=== PATIENT | female | born 1990 | race Caucasian/White ===

== ENCOUNTER 2019-11-07 14:10 | Inpatient (IN) | payer OTHER ==
[~2019-11-07] VITALS: Ht 157.5 cm; Wt 68.5 kg
[2019-11-07 16:00] VITALS: BP 111/71
--- NOTE | 2019-11-07 16:15 | NUR ---
29 year old FEMALE admitted to room # 502-2 for stabilization. Reports an addiction to [facility] last used YESTERDAY prior to admission. Compliant with admission procedure. Patient COMPLAINING OF MUSCLE ACHES AT THIS TIME. See assessment forms for additional information about patient status.
--- NOTE | 2019-11-07 16:15 | NUR ---
PATIENT MEETS [facility]. CINA=15. PATIENT WNATS TO FOLLOW UP WITH [facility] FOR HER AFTERCARE PLAN. CLAUDIO OLIVO B.A. HEALTH EDUCATION COORDINATOR
[2019-11-07 17:08] LABS: BILIRUBIN NEGATIVE (NEGATIVE); BLOOD NEGATIVE (NEGATIVE); CLARITY CLEAR (CLEAR); COLOR YELLOW (YELLOW); GLUCOSE NEGATIVE (NEGATIVE); KETONE NEGATIVE (NEGATIVE); LEUKO ESTERASE NEGATIVE (NEGATIVE); NITRITE NEGATIVE (NEGATIVE); SPECIFIC GRAVITY 1.025 (1.005-1.030); UROBILINOGEN 0.2 E.U./dl (0.2-1.0)
[2019-11-07 17:15] LABS: URINE AMPHETAMINES < 1000 (1000ng/ml); URINE BARBITURATES < 200 (200ng/ml); URINE BENZODIAZEPINES < 200 (200ng/ml); URINE CANNABINOIDS (THC) < 50 (50ng/ml); URINE COCAINE > 300 (300ng/ml); URINE METHADONE < 300 (300ng/ml); URINE OPIATES < 300 (300ng/ml)
[2019-11-07 17:24] LABS: URINE PHENCYCLIDINE < 25 (25ng/ml)
[2019-11-07 17:28] LABS: BACTERIA TRACE; EPITHELIAL CELLS 0-2; MUCOUS 2+; WBC 0-2 wbc/hpf (0-5)
--- NOTE | 2019-11-07 18:25 | NUR ---
PT TOLERATED ROUTINE SUBUTEX FOR WITHDRAWAL SYMPTOMS. C/O ACHES ALL OVER. CALL LIGHT IN REACH.
[2019-11-07 18:35] LABS: BASO # 0.1 10*3/uL (0.0-0.1); EOS # 0.4 10*3/uL (0.0-0.4); EOS % 5.2 % (1.0-4.0); HEMATOCRIT 44.4 % (37.0-47.0); HEMOGLOBIN 14.6 g/dl (12.0-16.0); LYMPH # 1.9 10*3/uL (1.3-4.4); LYMPH % 24.7 % (27.0-41.0); MEAN CELL VOLUME 87.2 fl (81.0-99.0); MEAN CORPUSCULAR HGB 28.7 pg (27.0-31.0); MEAN CORPUSCULAR HGB CONC 32.9 g/dl (33.0-37.0); MEAN PLATELET VOLUME 9.4 fl (9.6-12.3); MONO # 0.6 10*3/uL (0.1-1.0); MONO % 7.1 % (3.0-9.0); NEUT # 4.8 10*3/uL (2.3-7.9); NEUT % 61.6 % (47.0-73.0); PLATELET COUNT AUTOMATED 317 10*3/uL (130-400); RED BLOOD COUNT 5.09 10*6/uL (4.10-5.10); RED CELL DISTRI WIDTH 14.7 % (0-14.5); WHITE BLOOD COUNT 7.9 10*3/uL (4.8-10.8)
[2019-11-07 18:52] LABS: ALBUMIN 3.7 gm/dl (3.1-4.5); ALKALINE PHOSPHATASE 79 U/L (45-117); BUN 15 mg/dl (7-24); CHLORIDE 109 mmol/L (98-107); CREATININE 0.99 mg/dL (0.55-1.02); POTASSIUM 4.2 mmol/L (3.5-5.1); SGOT/AST 7 IU/L (3-35); SGPT/ALT 18 U/L (12-78); SODIUM 140 mmol/L (136-145); TOTAL PROTEIN 7.8 gm/dL (6.4-8.2)
[2019-11-07 18:58] LABS: ETHYL ALCOHOL < 3.0 mg/dl (<3)
[2019-11-07 20:00] VITALS: BP 113/73
--- NOTE | 2019-11-07 22:00 | NUR ---
PT RESTING IN BED. DENIES ANY PROBLEMS. CALL LIGHT IN REACH.
[2019-11-08] VITALS: BP 112/74
[2019-11-08 08:00] VITALS: BP 98/52
[2019-11-08 12:00] VITALS: BP 101/86; BP 116/70
--- NOTE | 2019-11-08 14:29 | NUR ---
PATIENT STILL WANTS TO FOOLOW UP WITH [facility] FOR HER AFTERCARE PLAN. CLAUDIO OLIVO B.A. PURLER
--- NOTE | 2019-11-08 15:58 | NUR ---
ROUTINE SUBUTEX GIVEN AT THIS TIME. PT DENIES ANY PRN MEDS. WILL MONITOR. CALL LIGHT WITHIN REACH.
[2019-11-08 16:00] VITALS: BP 102/64
[2019-11-08 20:00] VITALS: BP 110/65
--- NOTE | 2019-11-08 20:00 | NUR ---
IN TO ASSESS PATIENT, PATINET PLEASANT AND COOPERATIVE. DENIES ANY COMPLAINTS RIGHT NOW. CALL LIGHT WITHIN REACH, WILL MONITOR
--- NOTE | 2019-11-08 21:59 | NUR ---
PRN REQUIP GIVEN FOR PT COMPLAINTS OF RESTLESS LEGS. CALL LIGHT WITHIN REACH, WILL MONITOR
--- NOTE | 2019-11-08 23:06 | NUR ---
PATIENT STATES REQUIP EFFECTIVE, SHE FEELS BETTER AND HAS NO OTHER NEEDS
[2019-11-09] VITALS: BP 112/67; BP 113/70
--- NOTE | 2019-11-09 00:03 | NUR ---
24 HR chart check completed.
[2019-11-09 08:00] VITALS: BP 100/52
[2019-11-09 12:00] VITALS: BP 102/54
--- NOTE | 2019-11-09 15:26 | NUR ---
PATIENT IS SCHEDULED TO GO TO [facility] FOR HER AFTERCARE PLAN. PATIENT AGREES AND UNDERSTANDS HER AFTERCARE PLAN. CLAUDIO OLIVO B.A. SALES PROMOTER
[2019-11-09 16:00] VITALS: BP 107/58
[2019-11-09 20:00] VITALS: BP 119/62
--- NOTE | 2019-11-09 23:09 | NUR ---
24 HR chart check completed.
[2019-11-10] VITALS: BP 112/67
[2019-11-10 06:50] LABS: BASO # 0.1 10*3/uL (0.0-0.1); BASO % 1.3 % (0.0-1.0); EOS # 0.6 10*3/uL (0.0-0.4); EOS % 7.8 % (1.0-4.0); HEMATOCRIT 40.8 % (37.0-47.0); LYMPH # 3.3 10*3/uL (1.3-4.4); LYMPH % 40.4 % (27.0-41.0); MEAN CELL VOLUME 85.9 fl (81.0-99.0); MEAN CORPUSCULAR HGB 27.4 pg (27.0-31.0); MEAN CORPUSCULAR HGB CONC 31.9 g/dl (33.0-37.0); MEAN PLATELET VOLUME 9.4 fl (9.6-12.3); MONO # 0.8 10*3/uL (0.1-1.0); MONO % 9.9 % (3.0-9.0); NEUT # 3.3 10*3/uL (2.3-7.9); NEUT % 40.5 % (47.0-73.0); PLATELET COUNT AUTOMATED 281 10*3/uL (130-400); RED BLOOD COUNT 4.75 10*6/uL (4.10-5.10); RED CELL DISTRI WIDTH 13.9 % (0-14.5); WHITE BLOOD COUNT 8.2 10*3/uL (4.8-10.8)
[2019-11-10 07:20] LABS: CREATININE 0.84 mg/dL (0.55-1.02)
[2019-11-10 08:00] VITALS: BP 121/72
--- NOTE | 2019-11-10 10:34 | NUR ---
Discharge instructions reviewed with patient/family. Patient receptive and verbalizes understanding. Follow-up care arranged. Written instructions given to patient/family. DONTA WILLS
== END 2019-11-10 10:34 | disposition home or self-care (01) | DRG 773 ==
LOC: 5E 14:10
PROVIDERS: Student in an Organized Health Care Education/Training Program; ADMIT Family Medicine
DX: F11.23 Opioid dependence with withdrawal (principal); F41.9 Anxiety disorder, unspecified; F17.210 Nicotine dependence, cigarettes, uncomplicated; G25.81 Restless legs syndrome; F19.90 Other psychoactive substance use, unspecified, uncomplicated; F14.10 Cocaine abuse, uncomplicated; E66.3 Overweight; R82.71 Bacteriuria; Z71.6 Tobacco abuse counseling; Z68.27 Body mass index [BMI] 27.0-27.9, adult; Z90.49 Acquired absence of other specified parts of digestive tract; Z82.61 Family history of arthritis; Z82.49 Family history of ischemic heart disease and other diseases of the circulatory system